=== PATIENT | female | born 1940 | race Caucasian/White ===

== ENCOUNTER → 2018-07-20 | Outpatient (CLI) | payer MEDICARE, BC ==
--- NOTE | 2018-07-21 12:22 | ECHOF ---
Referral Reason:I35.0 Aortic Stenosis MEASUREMENTS -------- HEIGHT: 170.2 cm WEIGHT: 95.3 kg BP: IVSd: 1.3 cm (0.6 - 1.1) LVIDd: 4.3 cm (3.9 - 5.3) LVPWd: 1.0 cm (0.6 - 1.1) IVSs: 1.4 cm LVIDs: 3.2 cm LVPWs: 1.2 cm LA Diam: 3.8 cm (2.7 - 3.8) LAESV Index (A-L): 28.08 ml/m Ao Diam: 3.0 cm (2.0 - 3.7) AV Cusp: 1.3 cm (1.5 - 2.6) LA Diam: 3.8 cm (2.7 - 3.8) MV EXCURSION: 22.495 mm (> 18.000) MV EF SLOPE: 111 mm/s (70 - 150) EPSS: 1.8 cm MV E Vincent: 0.75 m/s MV DecT: 275 ms MV A Vincent: 0.99 m/s MV E/A Ratio: 0.76 AV maxP.15 mmHg AV meanP.64 mmHg RAP: 5.00 mmHg RVSP: 28.98 mmHg FINDINGS -------- Sinus rhythm. This was a technically adequate study. The left ventricular size is normal. There is mild concentric left ventricular hypertrophy. Overa ll left ventricular systolic function is normal with, an EF between 55 - 60 %. The right ventricle is normal in size. The left atrial size is normal. The right atrial size is normal. There is mild aortic valve sclerosis. There is mild aortic stenosis present. Peak/mean gradient a cross the Aortic Valve is 20.15mmHg / 9.64mmHg. Mild mitral annular calcification present. Mild mitral regurgitation is present. Mild tricuspid regurgitation present. There is no evidence of pulmonary hypertension. The right v entricular systolic pressure, as measured by Doppler, is 28.98mmHg. There is no pulmonic regurgitation present. The aortic root size is normal. There is no pericardial effusion. CONCLUSIONS -------- 1. The left ventricular size is normal. 2. There is mild concentric left ventricular hypertrophy. 3. Overall left ventricular systolic function is normal with, an EF between 55 - 60 %. 4. The right ventricle is normal in size. 5. The left atrial size is normal. 6. The right atrial size is normal. 7. There is mild aortic valve sclerosis. 8. There is mild aortic stenosis present. 9. Peak/mean gradient across the Aortic Valve is 20.15mmHg / 9.64mmHg. 10. Mild mitral annular calcification present. 11. Mild mitral regurgitation is present. 12. Mild tricuspid regurgitation present. 13. There is no evidence of pulmonary hypertension. 14. The right ventricular systolic pressure, as measured by Doppler, is 28.98mmHg. 15. There is no pulmonic regurgitation present. 16. The aortic root size is normal. 17. There is no pericardial effusion. MATERIAL STRESS TESTER: Rosa Winkler RDCS
== END ==
LOC: RADECHMAIN 12:55
PROVIDERS: ATTEND Internal Medicine
DX: I08.3 Combined rheumatic disorders of mitral, aortic and tricuspid valves (principal)
CPT/HCPCS: 93306

== ENCOUNTER 2019-03-17 18:22 | Inpatient (IN) | payer MEDICARE, BC ==
[2019-03-17] MEDS ORDERED: ACETAMINOPHEN TAB 500 MG TAB PO STA (18:46)
--- NOTE | 2019-03-17 19:09 | ED ---
General Adult HPI - General Chief complaint: Nausea/Vomiting/Diarrhea Stated complaint: nausea Time Seen by Provider: 03/17/19 18:29 Source: patient, EMS Mode of arrival: EMS Limitations: no limitations - History of Present Illness Initial comments: 78-year-old female patient presents to the emergency department today for evaluation after having an episode of shaking chills at home. Patient states this started a couple of hours ago and only seemed to be worsening. Patient states she feels unwell. She denies any cough, nasal congestion, sore throat, chest pain, shortness of breath, abdominal pain, rash, or headache. States she has been nauseated but has not vomited. Denies any recent travel. States that she does have several family member sick with a gastrointestinal virus however she has not been around them. States she did have some mild dysuria. Patient denies any recent rash, diarrhea, constipation, back pain, numbness, tingling, dizziness, hematuria, visual changes, or any other complaints. - Related Data Home Medications Medication Instructions Recorded Confirmed Metoprolol Tartrate [Lopressor] 25 mg PO BID 10/30/15 03/17/19 Omeprazole 20 mg PO HS 10/30/15 03/17/19 Simvastatin [Zocor] 20 mg PO HS 10/30/15 03/17/19 Spironolactone [Aldactone] 25 mg PO DAILY 10/30/15 03/17/19 Valsartan [Diovan] 160 mg PO DAILY 10/30/15 03/17/19 Anastrozole [Arimidex] 1 mg PO HS 03/17/19 03/17/19 Aspirin EC [Ecotrin Low Dose] 81 mg PO HS 03/17/19 03/17/19 Aspirin [Aspirin EC] 650 mg PO BID 03/17/19 03/17/19 Cholecalciferol (Vitamin D3) 2,000 unit PO DAILY 03/17/19 03/17/19 [Vitamin D3] Allergies Allergy/AdvReac Type Severity Reaction Status Date / Time adhesive Allergy Rash/Hives Verified 03/17/19 19:06 codeine Allergy Nausea Verified 03/17/19 19:06 enalapril maleate Allergy Cough Verified 03/17/19 19:06 [From Vasotec] enalaprilat dihydrate Allergy Cough Verified 03/17/19 19:06 [From Vasotec] Sulfa (Sulfonamide Allergy Rash/Hives Verified 03/17/19 19:06 Antibiotics) Review of Systems ROS Statement: Those systems with pertinent positive or pertinent negative responses have been documented in the HPI. ROS Other: All systems not noted in ROS Statement are negative. Past Medical History Past Medical History: Cancer, GERD/Reflux, Hyperlipidemia, Hypertension Additional Past Medical History / Comment(s): VERTIGO. BRADYCARDIA. BREAST CANCER WITH RADIATION. History of Any Multi-Drug Resistant Organisms: None Reported Past Surgical History: Appendectomy, Hysterectomy, Joint Replacement, Tonsillectomy Additional Past Surgical History / Comment(s): LEFT MASTECTOMY. RIGHT KNEE REPLACED Past Anesthesia/Blood Transfusion Reactions: Motion Sickness Additional Past Anesthesia/Blood Transfusion Reaction / Comment(s): HX OF VERTIGO Past Psychological History: No Psychological Hx Reported Smoking Status: Never smoker Past Alcohol Use History: None Reported Past Drug Use History: None Reported - Past Family History Father Family Medical History: COPD General Exam Limitations: no limitations General appearance: alert, in no apparent distress, other (Physical well- developed, well-nourished elderly female patient in no acute distress. Vital signs upon presentation are temperature 3.3F, pulse 81, respirations 18, blood pressure 126/54, pulse ox 96% on room air.) Eye exam: Present: normal appearance, PERRL, EOMI. Absent: scleral icterus, conjunctival injection, periorbital swelling ENT exam: Present: normal exam, normal oropharynx, mucous membranes moist Respiratory exam: Present: normal lung sounds bilaterally. Absent: respiratory distress, wheezes, rales, rhonchi, stridor Cardiovascular Exam: Present: regular rate, normal rhythm, normal heart sounds. Absent: systolic murmur, diastolic murmur, rubs, gallop, clicks GI/Abdominal exam: Present: soft, normal bowel sounds. Absent: distended, tenderness, guarding, rebound, rigid Neurological exam: Present: alert, oriented X3, CN II-XII intact Psychiatric exam: Present: normal affect, normal mood Skin exam: Present: warm, dry, intact, normal color. Absent: rash Course Vital Signs 03/17/19 03/17/19 18:25 21:08 Temperature 103.3 F H 99.5 F Pulse Rate 81 Respiratory 18 Rate Blood Pressure 126/54 O2 Sat by Pulse 96 Oximetry EKG Findings - EKG Comments: EKG Findings:: EKG obtained at 1825 shows normal sinus rhythm with a ventricular rate of 85, MI interval 198, QRS duration 80, QT 366, QTc 435. No evidence of ST elevation or depression. Medical Decision Making - Medical Decision Making 78-year-old female patient presented to the emergency department today after grimm ving shaking chills at home. Patient is reporting feeling unwell. Upon arrival is resting comfortably in bed. Physical examination is unremarkable. Abdomen is soft and nontender. Lungs are clear to auscultation with good air movement. Vital signs do reveal elevated temperature 103F, remainder of vitals are normal. Labs reviewed and did reveal elevated white blood cell count at 12, elevated lactic acid at 2.3. Urinalysis was positive for urinary tract infection. Given these findings patient will be admitted to the hospital for IV antibiotics for UTI and sepsis. My attending Dr. Daigle discussed the case with parts sales counterperson [employer] Dr. Bales who is accepting. - Lab Data Result diagrams: 03/17/19 18:57 03/17/19 18:57 Lab Results 03/17/19 03/17/19 03/17/19 Range/Units 18:57 18:57 18:57 WBC 12.0 H (3.8-10.6) k/uL RBC 4.06 (3.80-5.40) m/uL Hgb 13.8 (11.4-16.0) gm/dL Hct 41.8 (34.0-46.0) % MCV 103.0 H (80.0-100.0) fL MCH 33.9 (25.0-35.0) pg MCHC 33.0 (31.0-37.0) g/dL RDW 13.0 (11.5-15.5) % Plt Count 192 (150-450) k/uL Neutrophils % 90 % Lymphocytes % 4 % Monocytes % 4 % Eosinophils % 1 % Basophils % 0 % Neutrophils # 10.8 H (1.3-7.7) k/uL Lymphocytes # 0.5 L (1.0-4.8) k/uL Monocytes # 0.5 (0-1.0) k/uL Eosinophils # 0.1 (0-0.7) k/uL Basophils # 0.1 (0-0.2) k/uL Macrocytosis Slight PT 10.1 (9.0-12.0) sec INR 0.9 (<1.2) APTT 19.3 L (22.0-30.0) sec Sodium 141 (137-145) mmol/L Potassium 4.4 (3.5-5.1) mmol/L Chloride 107 (98-107) mmol/L Carbon Dioxide 24 (22-30) mmol/L Anion Gap 10 mmol/L BUN 16 (7-17) mg/dL Creatinine 0.99 (0.52-1.04) mg/dL Est GFR (CKD-EPI)AfAm 63 (>60 ml/min/1.73 sqM) Est GFR (CKD-EPI)NonAf 55 (>60 ml/min/1.73 sqM) Glucose 106 H (74-99) mg/dL Plasma Lactic Acid Tony (0.7-2.0) mmol/L Calcium 10.4 H (8.4-10.2) mg/dL Total Bilirubin 1.2 (0.2-1.3) mg/dL AST 20 (14-36) U/L ALT 18 (9-52) U/L Alkaline Phosphatase 69 (38-126) U/L Total Protein 6.6 (6.3-8.2) g/dL Albumin 3.9 (3.5-5.0) g/dL Urine Color Urine Appearance (Clear) Urine pH (5.0-8.0) Ur Specific [place] (1.001-1.035) Urine Protein (Negative) Urine Glucose (UA) (Negative) Urine Ketones (Negative) Urine Blood (Negative) Urine Nitrite (Negative) Urine Bilirubin (Negative) Urine Urobilinogen (<2.0) mg/dL Ur Leukocyte Esterase (Negative) Urine RBC (0-5) /hpf Urine WBC (0-5) /hpf Ur Squamous Epith Cells (0-4) /hpf Urine Bacteria (None) /hpf Urine Mucus (None) /hpf Influenza Type A RNA (Not Detectd) Influenza Type B (PCR) (Not Detectd) 03/17/19 03/17/19 03/17/19 Range/Units 19:12 19:33 19:57 WBC (3.8-10.6) k/uL RBC (3.80-5.40) m/uL Hgb (11.4-16.0) gm/dL Hct (34.0-46.0) % MCV (80.0-100.0) fL MCH (25.0-35.0) pg MCHC (31.0-37.0) g/dL RDW (11.5-15.5) % Plt Count (150-450) k/uL Neutrophils % % Lymphocytes % % Monocytes % % Eosinophils % % Basophils % % Neutrophils # (1.3-7.7) k/uL Lymphocytes # (1.0-4.8) k/uL Monocytes # (0-1.0) k/uL Eosinophils # (0-0.7) k/uL Basophils # (0-0.2) k/uL Macrocytosis PT (9.0-12.0) sec INR (<1.2) APTT (22.0-30.0) sec Sodium (137-145) mmol/L Potassium (3.5-5.1) mmol/L Chloride (98-107) mmol/L Carbon Dioxide (22-30) mmol/L Anion Gap mmol/L BUN (7-17) mg/dL Creatinine (0.52-1.04) mg/dL Est GFR (CKD-EPI)AfAm (>60 ml/min/1.73 sqM) Est GFR (CKD-EPI)NonAf (>60 ml/min/1.73 sqM) Glucose (74-99) mg/dL Plasma Lactic Acid Tony 2.3 H* (0.7-2.0) mmol/L Calcium (8.4-10.2) mg/dL Total Bilirubin (0.2-1.3) mg/dL AST (14-36) U/L ALT (9-52) U/L Alkaline Phosphatase (38-126) U/L Total Protein (6.3-8.2) g/dL Albumin (3.5-5.0) g/dL Urine Color Yellow Urine Appearance Cloudy H (Clear) Urine pH 5.5 (5.0-8.0) Ur Specific [place] 1.016 (1.001-1.035) Urine Protein Trace H (Negative) Urine Glucose (UA) Negative (Negative) Urine Ketones Negative (Negative) Urine Blood Small H (Negative) Urine Nitrite Negative (Negative) Urine Bilirubin Negative (Negative) Urine Urobilinogen <2.0 (<2.0) mg/dL Ur Leukocyte Esterase Large H (Negative) Urine RBC 14 H (0-5) /hpf Urine WBC >182 H (0-5) /hpf Ur Squamous Epith Cells 1 (0-4) /hpf Urine Bacteria Rare H (None) /hpf Urine Mucus Rare H (None) /hpf Influenza Type A RNA Not Detected (Not Detectd) Influenza Type B (PCR) Not Detected (Not Detectd) - Radiology Data Radiology results: report reviewed, image reviewed Two-view x-ray of the chest is obtained. Report was reviewed in its entirety. Impression by Dr. Kaur shows normal chest. Disposition Clinical Impression: UTI (urinary tract infection), Sepsis Disposition: ADMITTED IP TO THIS HOSP Condition: Serious Referrals: Jose Conde MD [Primary Care Provider] - 1-2 days Decision to Admit Reason: Admit from EC Decision Date: 03/17/19 Decision Time: 21:37
[2019-03-17 19:22] LABS: Basophils # (A) 0.1 k/uL (0-0.2); Basophils % (A) 0 %; Eosinophils # (A) 0.1 k/uL (0-0.7); Eosinophils % (A) 1 %; HCT 41.8 % (34.0-46.0); HGB 13.8 gm/dL (11.4-16.0); Lymphocytes # (A) 0.5 k/uL (1.0-4.8); Lymphocytes % (A) 4 %; MCH 33.9 pg (25.0-35.0); Macrocytosis Slight; Mean Platelet Volume 7.1; Monocytes # (A) 0.5 k/uL (0-1.0); Monocytes % (A) 4 %; Neutrophils # (A) 10.8 k/uL (1.3-7.7); Neutrophils % (A) 90 %; Platelet Count 192 k/uL (150-450); RBC 4.06 m/uL (3.80-5.40)
[2019-03-17 19:33] LABS: Albumin 3.9 g/dL (3.5-5.0); Calcium 10.4 mg/dL (8.4-10.2); Potassium 4.4 mmol/L (3.5-5.1); Total Bilirubin 1.2 mg/dL (0.2-1.3); Total Protein 6.6 g/dL (6.3-8.2)
[2019-03-17 19:38] LABS: INR 0.9 (<1.2); Prothrombin Time 10.1 sec (9.0-12.0)
[2019-03-17] MEDS: SODIUM CHLORIDE 0.9% 500 ML 500 ML IV SCH ×2 (19:39→21:00)
[2019-03-17 19:44] LABS: Partial Thromboplastin Time 19.3 sec (22.0-30.0)
--- NOTE | 2019-03-17 20:11 | XR ---
EXAMINATION TYPE: XR chest 2V DATE OF EXAM: 03/17/2019 COMPARISON: NONE HISTORY: Nausea. TECHNIQUE: Frontal and lateral views of the chest are obtained. FINDINGS: Heart and mediastinum are normal. Lungs are clear. Diaphragm is normal. Bony thorax is int act. There are chest leads. IMPRESSION: Normal chest
[2019-03-17 20:47] LABS: Appearance,Urine Cloudy (Clear); Bacteria,Urine Rare /hpf; Bilirubin,Urine Negative (Negative); Blood,Urine Small (Negative); Color,Urine Yellow; Glucose,Urine (UA) Negative (Negative); Ketones,Urine Negative (Negative); Leukocyte Esterase,Urine Large (Negative); Mucus,Urine Rare /hpf; Nitrite,Urine Negative (Negative); PH, Urine 5.5 (5.0-8.0); Protein,Urine Trace (Negative); RBC,Urine 14 /hpf (0-5); Specific Gravity,Urine 1.016 (1.001-1.035); Squamous Epithelial Cell,Urine 1 /hpf (0-4); Urobilinogen,Urine <2.0 mg/dL (<2.0); WBC,Urine >182 /hpf (0-5)
[2019-03-17] MEDS ORDERED: NALOXONE 0.4 MG/ML 1 ML VIAL IV PRN (21:33)
--- NOTE | 2019-03-17 22:30 | P.HPIM ---
History of Present Illness H&P Date: 03/17/19 Patient is a 78-year-old female with a PMH of hypertension, breast cancer status post left mastectomy and radiation 7 years ago, in remission, and hyperlipidemia presented to the ED with complaints of dysuria, and chills at home. Patient notes that she has a history of multiple recurrent UTIs and that she felt her symptoms coming on a day prior, though they worsened suddenly earlier today and she developed fever with shaking chills. She endorsed dysuria, urinary urgency, and frequency. She also endorsed having 3 episodes of small amounts of vomiting earlier today. She denied chest pain, shortness of breath abdominal pain, headaches, or visual disturbances. She underwent an extensive evaluation in the ED with WBC count 12, fever of 103.3 on presentation, with lactate 2.3, and a UA consistent with UTI. An EKG revealed normal sinus rhythm at 85 bpm with chest x-ray unremarkable. She was started on IV antibiotics and IV fluids and is being admitted to the medicine service for further management of UTI sepsis. Review of Systems Pertinent positives and negatives as discussed in HPI, a complete review of systems was performed and all other systems are negative. Past Medical History Past Medical History: Cancer, GERD/Reflux, Hyperlipidemia, Hypertension Additional Past Medical History / Comment(s): VERTIGO. BRADYCARDIA. BREAST CANCER WITH RADIATION. History of Any Multi-Drug Resistant Organisms: None Reported Past Surgical History: Appendectomy, Hysterectomy, Joint Replacement, Tonsillectomy Additional Past Surgical History / Comment(s): LEFT MASTECTOMY. RIGHT KNEE REPLACED Past Anesthesia/Blood Transfusion Reactions: Motion Sickness Additional Past Anesthesia/Blood Transfusion Reaction / Comment(s): HX OF VERTIGO Past Psychological History: No Psychological Hx Reported Smoking Status: Never smoker Past Alcohol Use History: None Reported Past Drug Use History: None Reported - Past Family History Father Family Medical History: COPD Medications and Allergies Home Medications Medication Instructions Recorded Confirmed Type Metoprolol Tartrate [Lopressor] 25 mg PO BID 10/30/15 03/17/19 History Omeprazole 20 mg PO HS 10/30/15 03/17/19 History Simvastatin [Zocor] 20 mg PO HS 10/30/15 03/17/19 History Spironolactone [Aldactone] 25 mg PO DAILY 10/30/15 03/17/19 History Valsartan [Diovan] 160 mg PO DAILY 10/30/15 03/17/19 History Anastrozole [Arimidex] 1 mg PO HS 03/17/19 03/17/19 History Aspirin EC [Ecotrin Low Dose] 81 mg PO HS 03/17/19 03/17/19 History Aspirin [Aspirin EC] 650 mg PO BID 03/17/19 03/17/19 History Cholecalciferol (Vitamin D3) 2,000 unit PO DAILY 03/17/19 03/17/19 History [Vitamin D3] Allergies Allergy/AdvReac Type Severity Reaction Status Date / Time adhesive Allergy Rash/Hives Verified 03/17/19 19:06 codeine Allergy Nausea Verified 03/17/19 19:06 enalapril maleate Allergy Cough Verified 03/17/19 19:06 [From Vasotec] enalaprilat dihydrate Allergy Cough Verified 03/17/19 19:06 [From Vasotec] Sulfa (Sulfonamide Allergy Rash/Hives Verified 03/17/19 19:06 Antibiotics) Physical Exam Vitals: Vital Signs Temp Pulse Resp BP Pulse Ox 03/17/19 22:16 98.4 F 64 18 98/50 95 03/17/19 21:08 99.5 F 03/17/19 18:25 103.3 F H 81 18 126/54 96 Intake and Output 03/17/19 03/17/19 03/17/19 06:59 14:59 22:59 Other: Weight 95.254 kg General: non toxic, no distress, appears at stated age, obese Derm: no unusual rashes/lesions no unusual ecchymoses, warm, dry Head: atraumatic, normocephalic, symmetric Eyes: EOMI, no lid lag, anicteric sclera, pupils equal round reactive to light ENT: Nose and ears atraumatic, no thrush, no pharyngeal erythema Neck: No thyromegaly, no cervical lymphadenopathy, trachea midline, supple Mouth: no lip lesion, mucus membranes moist Cardiovascular: S1S2 reg, no murmur, positive posterior tibial pulse bilateral, no edema, capillary refill less than 2 seconds Lungs: CTA bilateral, no rhonchi, no rales , no accessory muscle use Abdominal: soft, nontender to palpation, no guarding, no appreciable organomegaly, normal bowel sounds Ext: no gross muscle atrophy, muscle strength 5 out of 5 in all 4 extremities grossly, no contractures, Neuro: CN II-XI grossly intact, light touch intact all 4 extremities, finger to nose within normal limits, Psych: Alert, oriented, appropriate affect Results CBC & Chem 7: 03/17/19 18:57 03/17/19 18:57 Labs: Abnormal Lab Results - Last 24 Hours (Table) 03/17/19 03/17/19 03/17/19 Range/Units 18:57 18:57 18:57 WBC 12.0 H (3.8-10.6) k/uL MCV 103.0 H (80.0-100.0) fL Neutrophils # 10.8 H (1.3-7.7) k/uL Lymphocytes # 0.5 L (1.0-4.8) k/uL APTT 19.3 L (22.0-30.0) sec Glucose 106 H (74-99) mg/dL Plasma Lactic Acid Tony (0.7-2.0) mmol/L Calcium 10.4 H (8.4-10.2) mg/dL Urine Appearance (Clear) Urine Protein (Negative) Urine Blood (Negative) Ur Leukocyte Esterase (Negative) Urine RBC (0-5) /hpf Urine WBC (0-5) /hpf Urine Bacteria (None) /hpf Urine Mucus (None) /hpf 03/17/19 03/17/19 Range/Units 19:12 19:57 WBC (3.8-10.6) k/uL MCV (80.0-100.0) fL Neutrophils # (1.3-7.7) k/uL Lymphocytes # (1.0-4.8) k/uL APTT (22.0-30.0) sec Glucose (74-99) mg/dL Plasma Lactic Acid Tony 2.3 H* (0.7-2.0) mmol/L Calcium (8.4-10.2) mg/dL Urine Appearance Cloudy H (Clear) Urine Protein Trace H (Negative) Urine Blood Small H (Negative) Ur Leukocyte Esterase Large H (Negative) Urine RBC 14 H (0-5) /hpf Urine WBC >182 H (0-5) /hpf Urine Bacteria Rare H (None) /hpf Urine Mucus Rare H (None) /hpf Assessment and Plan Plan: UTI sepsis -Continue with IV antibiotics with ceftriaxone daily -Continue with IV fluids -Follow-up urine and blood culture Lactic acidosis -Secondary to sepsis -Monitor to resolution Chronic conditions: ?Afib, HTN, HLD -Contact PMD's office to get info regarding possible Afib and why patient isn't on AC -Hold antihypertensives in setting of sepsis -Resume as warranted DVT prophylaxis -Heparin The patient is admitted with an anticipated less than 2 midnight stay for evaluation of UTI sepsis CODE STATUS: No Code Discussed with: Patient, , Daughter Anticipated discharge date: 03/19/[address]: Home A total of 40 minutes was spent on the care of this complex patient more than 50% of the time was spent in counseling and care coordination.
[2019-03-18] MEDS: SODIUM CHLORIDE 0.9% 1,000 ML IV SCH ×3 (00:53→18:55)
[2019-03-18] MEDS: HEPARIN SODIUM,PORCINE 5,000 UNIT/ML 1 ML VIAL SQ SCH ×4 (00:53→23:32)
[2019-03-18] MEDS: CHOLECALCIFEROL 1,000 UNIT TAB PO SCH (07:50)
[2019-03-18] MEDS: METOPROLOL TARTRATE 25 MG TAB PO SCH ×2 (07:55→21:15)
[2019-03-18 09:19] LABS: HCT 38.8 % (34.0-46.0); MCH 34.8 pg (25.0-35.0); MCHC 33.5 g/dL (31.0-37.0); Macrocytosis Slight; Mean Platelet Volume 7.9; Platelet Count 181 k/uL (150-450); RBC 3.73 m/uL (3.80-5.40); RDW 13.8 % (11.5-15.5); WBC 11.5 k/uL (3.8-10.6)
[2019-03-18 10:14] LABS: Eosinophils # (M) 0.12 k/uL (0-0.7); Lymphocytes # (M) 1.38 k/uL (1.0-4.8); Monocytes # (M) 0.35 k/uL (0-1.0); Neutrophils % (M) 84 %; Nucleated Red Blood Cells 0 /100 WBC (0-0); Total Cells Counted 100
--- NOTE | 2019-03-18 13:51 | P.PN ---
Subjective Progress Note Date: 03/18/19 Principal diagnosis: UTI Doing better, no fevers or chills. No chest pain, no sob. No abdominal or flank pain. Objective - Vital Signs Vital signs: Vital Signs Temp 97.7 F 03/18/19 12:36 Pulse 71 03/18/19 12:36 Resp 16 03/18/19 12:36 BP 93/53 03/18/19 12:36 Pulse Ox 97 03/18/19 12:36 Intake & Output 03/17/19 03/18/19 03/18/19 18:59 06:59 18:59 Intake Total 500 Balance 500 Weight 95.254 kg Intake: Oral 500 Other: Voiding Method Toilet # Voids 1 - Exam Constitutional: No acute distress, conversant, pleasant Eyes:Anicteric sclerae, moist conjunctiva, no lid-lag, PERRLA, ENMT: Oropharynx clear, no erythema, exudates Neck: Supple, FROM, no masses, or JVD, No carotid bruits, No thyromegaly Lungs: Clear to auscultation, Clear to percussion, Normal respiratory effort, no accessory muscle use Cardiovascular: Heart regular in rate and rhythm, No murmurs, gallops, or rubs, No peripheral edema Abdominal: Soft, Nontender, no guarding, rebound or rigidity, Normoactive bowel sounds, No hepatomegaly, No splenomegaly, No palpable mass Skin: Normal temperature, tone, texture, turgor, no induration, No subcutaneous nodules, No rash, lesions, No ulcers Extremities: No digital cyanosis, No clubbing, Pedal pulses intact and symmetrical, Radial pulses intact and symmetrical, No calf tenderness Psychiatric: Alert and oriented to person, place and time, appropriate affect, intact judgement Neuro: Muscles Strength 5/5 in all 4 extremities, Sensation to light touch grossly present throughout, Cranial nerves II-XII grossly intact, no focal sensory deficits - Labs CBC & Chem 7: 03/18/19 08:44 03/17/19 18:57 Labs: Abnormal Lab Results - Last 24 Hours (Table) 03/17/19 03/17/19 03/17/19 Range/Units 18:57 18:57 18:57 WBC 12.0 H (3.8-10.6) k/uL RBC (3.80-5.40) m/uL MCV 103.0 H (80.0-100.0) fL Neutrophils # 10.8 H (1.3-7.7) k/uL Neutrophils # (Manual) (1.3-7.7) k/uL Lymphocytes # 0.5 L (1.0-4.8) k/uL APTT 19.3 L (22.0-30.0) sec Glucose 106 H (74-99) mg/dL Plasma Lactic Acid Tony (0.7-2.0) mmol/L Calcium 10.4 H (8.4-10.2) mg/dL Urine Appearance (Clear) Urine Protein (Negative) Urine Blood (Negative) Ur Leukocyte Esterase (Negative) Urine RBC (0-5) /hpf Urine WBC (0-5) /hpf Urine Bacteria (None) /hpf Urine Mucus (None) /hpf 03/17/19 03/17/19 03/18/19 Range/Units 19:12 19:57 08:44 WBC 11.5 H (3.8-10.6) k/uL RBC 3.73 L (3.80-5.40) m/uL MCV 104.0 H (80.0-100.0) fL Neutrophils # (1.3-7.7) k/uL Neutrophils # (Manual) 9.66 H (1.3-7.7) k/uL Lymphocytes # (1.0-4.8) k/uL APTT (22.0-30.0) sec Glucose (74-99) mg/dL Plasma Lactic Acid Tony 2.3 H* (0.7-2.0) mmol/L Calcium (8.4-10.2) mg/dL Urine Appearance Cloudy H (Clear) Urine Protein Trace H (Negative) Urine Blood Small H (Negative) Ur Leukocyte Esterase Large H (Negative) Urine RBC 14 H (0-5) /hpf Urine WBC >182 H (0-5) /hpf Urine Bacteria Rare H (None) /hpf Urine Mucus Rare H (None) /hpf Microbiology - Last 24 Hours (Table) 03/17/19 19:57 Urine Culture - Preliminary Urine,Voided Assessment and Plan Plan: UTI sepsis -Sepsis resolved. -Continue with IV antibiotics with ceftriaxone daily -Continue with IV fluids -Follow-up urine and blood culture Lactic acidosis -Secondary to sepsis -Resolved Chronic conditions: HTN, HLD -Stable, hold BP meds for now, BP borderline DVT prophylaxis -Heparin CODE STATUS: No Code Discussed with: Patient, , Daughter Anticipated discharge date: 03/19/[address]: Home A total of 35 minutes was spent on the care of this complex patient more than 50% of the time was spent in counseling and care coordination.
[2019-03-18] MEDS ORDERED: ANASTROZOLE 1 MG TAB PO SCH (21:00)
[2019-03-18] MEDS ORDERED: PANTOPRAZOLE 40 MG TABLET PO SCH (21:00)
[2019-03-18] MEDS ORDERED: ASPIRIN 81 MG PO SCH (21:00)
[2019-03-18] MEDS ORDERED: ATORVASTATIN 10 MG TAB PO SCH (21:00)
[2019-03-18 21:14] VITALS: RESP 18
[2019-03-19] MEDS: SODIUM CHLORIDE 0.9% 1,000 ML IV SCH (03:44)
[2019-03-19 05:29] VITALS: BP 132/73; PULSE 54; TEMP 99.1
[2019-03-19] MEDS: CHOLECALCIFEROL 1,000 UNIT TAB PO SCH (08:13)
[2019-03-19] MEDS: METOPROLOL TARTRATE 25 MG TAB PO SCH (08:13)
[2019-03-19] MEDS: HEPARIN SODIUM,PORCINE 5,000 UNIT/ML 1 ML VIAL SQ SCH (08:14)
--- NOTE | 2019-03-19 08:22 | P.DS ---
Providers Date of admission: 03/19/19 06:16 Expected date of discharge: 03/19/19 Attending physician: Wolf Bales MD Primary care physician: Jose Conde [facility] Course: 78-year-old female with a PMH of hypertension, breast cancer status post left mastectomy and radiation 7 years ago, in remission, and hyperlipidemia presented to the ED with complaints of dysuria, and chills at home. Patient notes that she has a history of multiple recurrent UTIs and that she felt her symptoms coming on a day prior, though they worsened suddenly earlier today and she developed fever with shaking chills. She endorsed dysuria, urinary urgency, and frequency. She also endorsed having 3 episodes of small amounts of vomiting earlier today. She denied chest pain, shortness of breath abdominal pain, headaches, or visual disturbances. She underwent an extensive evaluation in the ED with WBC count 12, fever of 103.3 on presentation, with lactate 2.3, and a UA consistent with UTI. An EKG revealed normal sinus rhythm at 85 bpm with chest x-ray unremarkable. She was started on IV antibiotics and IV fluids and is being admitted to the medicine service for further management of UTI sepsis. Patient was admitted, ceftriaxone started. Cultures were sent and they remained negative at the time of discharge. She did not have any recurrent symptoms chills or urinary symptoms. No more vomiting. Sepsis resolved. She will be discharged home in stable condition. Patient Condition at Discharge: Serious Plan - Discharge Summary New Discharge Prescriptions: New Cefdinir [Omnicef] 300 mg PO Q12HR 3 Days #6 capsule Continue Valsartan [Diovan] 160 mg PO DAILY Spironolactone [Aldactone] 25 mg PO DAILY Simvastatin [Zocor] 20 mg PO HS Omeprazole 20 mg PO HS Metoprolol Tartrate [Lopressor] 25 mg PO BID Aspirin EC [Ecotrin Low Dose] 81 mg PO HS Anastrozole [Arimidex] 1 mg PO HS Cholecalciferol (Vitamin D3) [Vitamin D3] 2,000 unit PO DAILY Aspirin [Aspirin EC] 650 mg PO BID Discharge Medication List Metoprolol Tartrate [Lopressor] 25 mg PO BID 10/30/15 [History] Omeprazole 20 mg PO HS 10/30/15 [History] Simvastatin [Zocor] 20 mg PO HS 10/30/15 [History] Spironolactone [Aldactone] 25 mg PO DAILY 10/30/15 [History] Valsartan [Diovan] 160 mg PO DAILY 10/30/15 [History] Anastrozole [Arimidex] 1 mg PO HS 03/17/19 [History] Aspirin EC [Ecotrin Low Dose] 81 mg PO HS 03/17/19 [History] Aspirin [Aspirin EC] 650 mg PO BID 03/17/19 [History] Cholecalciferol (Vitamin D3) [Vitamin D3] 2,000 unit PO DAILY 03/17/19 [History] Cefdinir [Omnicef] 300 mg PO Q12HR 3 Days #6 capsule 03/19/19 [Rx] Follow up Appointment(s)/Referral(s): Jose Conde MD [Primary Care Provider] - 1-2 days Patient Instructions/Handouts: Urinary Tract Infection in Women (DC), Sepsis (GEN)
== END 2019-03-19 10:24 | disposition home or self-care (01) | DRG 872 ==
LOC: EC 18:22 → 4MS4W 21:11 → OBSVTOIN 03-19 06:16
PROVIDERS: ADMIT Internal Medicine; ATTEND Internal Medicine
DX: A41.9 Sepsis, unspecified organism (principal); E87.2 Acidosis; N39.0 Urinary tract infection, site not specified; E78.5 Hyperlipidemia, unspecified; I10 Essential (primary) hypertension; I48.2 Chronic atrial fibrillation; K21.9 Gastro-esophageal reflux disease without esophagitis; Z79.899 Other long term (current) drug therapy; Z82.5 Family history of asthma and other chronic lower respiratory diseases; Z85.3 Personal history of malignant neoplasm of breast; Z87.440 Personal history of urinary (tract) infections; Z90.12 Acquired absence of left breast and nipple; Z90.710 Acquired absence of both cervix and uterus; Z92.3 Personal history of irradiation; Z88.5 Allergy status to narcotic agent; Z88.2 Allergy status to sulfonamides; Z88.8 Allergy status to other drugs, medicaments and biological substances; Z96.651 Presence of right artificial knee joint; Z79.82 Long term (current) use of aspirin
CPT/HCPCS: 36415; 71046; 80053; 81001; 83605; 85025; 85610; 85730; 87040; 87086; 87502; 93005; 96361; 96365; 99285

== ENCOUNTER → 2019-05-10 | Outpatient (CLI) | payer MEDICARE, BC ==
--- NOTE | 2019-05-10 15:48 | US ---
EXAMINATION TYPE: US kidneys/renal and bladder DATE OF EXAM: 05/10/2019 COMPARISON: NONE CLINICAL HISTORY: N39.0 Frequent or recurrent UTI. multiple UTI's this past year EXAM MEASUREMENTS: Right Kidney: 10.4 x 4.5 x 4.8 cm Left Kidney: 10.6 x 4.2 x 4.5 cm Right Kidney: exophytic cyst on inferior pole = 1.5cm Left Kidney: exophytic cyst on inferior pole = 1.5cm Bladder: wnl Bilateral Jets seen: not seen There is no evidence for hydronephrosis at this point in time. No nephrolithiasis is seen. No suspi cious masses are identified. The urinary bladder is anechoic. Bilateral ureteral jets are not seen. IMPRESSION: 1. No hydronephrosis or nephrolithiasis. 2. Bilateral exophytic renal cysts both measuring 1.5 cm.
== END | disposition home or self-care (01) ==
LOC: RADUSWWP 14:48
PROVIDERS: ATTEND Urology
DX: N28.1 Cyst of kidney, acquired (principal); Z88.2 Allergy status to sulfonamides; Z88.5 Allergy status to narcotic agent
CPT/HCPCS: 76770

== ENCOUNTER 2020-01-08 07:18 | Emergency (ER) | payer MEDICARE, BC ==
[2020-01-08 07:27] VITALS: TEMP 98
[2020-01-08] MEDS ORDERED: MECLIZINE 25 MG TAB PO STA (07:33)
[2020-01-08] MEDS ORDERED: SODIUM CHLORIDE 0.9% 500 ML 500 ML IV STA (07:33)
[2020-01-08 08:03] LABS: Basophils % (A) 1 %; Eosinophils # (A) 0.1 k/uL (0-0.7); Eosinophils % (A) 2 %; HCT 46.1 % (34.0-46.0); HGB 14.9 gm/dL (11.4-16.0); Lymphocytes # (A) 0.7 k/uL (1.0-4.8); Lymphocytes % (A) 16 %; MCH 33.3 pg (25.0-35.0); MCHC 32.4 g/dL (31.0-37.0); MCV 102.8 fL (80.0-100.0); Macrocytosis Slight; Mean Platelet Volume 7.4; Monocytes # (A) 0.2 k/uL (0-1.0); Monocytes % (A) 5 %; Neutrophils # (A) 3.6 k/uL (1.3-7.7); Neutrophils % (A) 77 %; Platelet Count 188 k/uL (150-450); RBC 4.48 m/uL (3.80-5.40); RDW 12.9 % (11.5-15.5); WBC 4.7 k/uL (3.8-10.6)
--- NOTE | 2020-01-08 08:05 | ED ---
General Adult HPI - General Chief complaint: Dizziness Stated complaint: vertigo Source: patient, RN notes reviewed, old records reviewed Mode of arrival: ambulatory Limitations: no limitations - History of Present Illness Initial comments: This is a 79-year-old female who presents emergency Department complaining that her vertigo was bad today. Patient states she woke up 3 times in the middle the night and every time she had vertigo. Patient states it was worse than it nor favian is. Patient states he didn't take any medications for it. Patient states she woke up this morning and again had vertigo and she began to panic because it was worse and she started breathing hard and got a little tingling in her fingers which she decided to call EMS per patient states since they arrived the vertigo subsided and so has her panic. Patient states currently she only has vertigo if she goes more prone to sitting position. Patient denies any recent fever chills cough per patient denies any headache patient denies numbness weakness per patient denies any lightheadedness dizziness or near syncopal episode. Patient denies any coordination problems. Patient denies any chest pain palpitations difficulty breathing or shortness of breath. Patient denies any abdominal pain patient states she was nauseous earlier but no longer. Patient was given Zofran in the ambulance. - Related Data Home Medications Medication Instructions Recorded Confirmed Metoprolol Tartrate [Lopressor] 25 mg PO BID 10/30/15 03/17/19 Omeprazole 20 mg PO HS 10/30/15 03/17/19 Simvastatin [Zocor] 20 mg PO HS 10/30/15 03/17/19 Spironolactone [Aldactone] 25 mg PO DAILY 10/30/15 03/17/19 Valsartan [Diovan] 160 mg PO DAILY 10/30/15 03/17/19 Anastrozole [Arimidex] 1 mg PO HS 03/17/19 03/17/19 Aspirin EC [Ecotrin Low Dose] 81 mg PO HS 03/17/19 03/17/19 Aspirin [Aspirin EC] 650 mg PO BID 03/17/19 03/17/19 Cholecalciferol (Vitamin D3) 2,000 unit PO DAILY 03/17/19 03/17/19 [Vitamin D3] Previous Rx's Medication Instructions Recorded Cefdinir [Omnicef] 300 mg PO Q12HR 3 Days #6 capsule 03/19/19 Meclizine [Antivert] 25 mg PO TID #20 tab 01/08/20 Allergies Allergy/AdvReac Type Severity Reaction Status Date / Time adhesive Allergy Rash/Hives Verified 01/08/20 07:22 codeine Allergy Nausea Verified 01/08/20 07:22 enalapril maleate Allergy Cough Verified 01/08/20 07:22 [From Vasotec] enalaprilat dihydrate Allergy Cough Verified 01/08/20 07:22 [From Vasotec] Sulfa (Sulfonamide Allergy Rash/Hives Verified 01/08/20 07:22 Antibiotics) Review of Systems ROS Statement: Those systems with pertinent positive or pertinent negative responses have been documented in the HPI. ROS Other: All systems not noted in ROS Statement are negative. Past Medical History Past Medical History: Cancer, GERD/Reflux, Hyperlipidemia, Hypertension Additional Past Medical History / Comment(s): VERTIGO. BRADYCARDIA. BREAST CANCE R WITH RADIATION. History of Any Multi-Drug Resistant Organisms: None Reported Past Surgical History: Adenoidectomy, Appendectomy, Hysterectomy, Joint Replacement, Tonsillectomy Additional Past Surgical History / Comment(s): LEFT MASTECTOMY. B KNEE REPLACED Past Anesthesia/Blood Transfusion Reactions: Motion Sickness Additional Past Anesthesia/Blood Transfusion Reaction / Comment(s): HX OF VERTIGO Past Psychological History: No Psychological Hx Reported Smoking Status: Never smoker Past Alcohol Use History: None Reported Past Drug Use History: None Reported - Past Family History Father Family Medical History: COPD General Exam - General Exam Comments Initial Comments: GENERAL: Patient is well-developed and well-nourished. Patient is nontoxic and well- hydrated and is in no acute distress. ENT: Neck is soft and supple. No significant lymphadenopathy is noted. Oropharynx is clear. Moist mucous membranes. Neck has full range of motion without eliciting any pain. EYES: The sclera were anicteric and conjunctiva were pink and moist. Extraocular movements were intact and pupils were equal round and reactive to light. Eyelids were unremarkable. PULMONARY: Unlabored respirations. Good breath sounds bilaterally. No audible rales rhonchi or wheezing was noted. CARDIOVASCULAR: There is a regular rate and rhythm without any murmurs gallops or rubs. ABDOMEN: Soft and nontender with normal bowel sounds. SKIN: Skin is clear with no lesions or rashes and otherwise unremarkable. NEUROLOGIC: Patient is alert and oriented x3. Cranial nerves II through XII are grossly intact. Motor and sensory are also intact. Normal speech, volume and content. Symmetrical smile. Cerebellar exam grossly intact. MUSCULOSKELETAL: Normal extremities with adequate strength and full range of motion. No lower extremity swelling or edema. No calf tenderness. LYMPHATICS: No significant lymphadenopathy is noted PSYCHIATRIC: Normal psychiatric evaluation. Limitations: no limitations Course Vital Signs 01/08/20 07:23 Temperature 98.0 F Pulse Rate 62 Respiratory 18 Rate Blood Pressure 147/65 O2 Sat by Pulse 99 Oximetry Medical Decision Making - Medical Decision Making EKG shows sinus bradycardia 59 bpm [place] interval is 212 QRS 76 QT interval 422 QTC is 417. Patient's EKG shows no ST segment elevation or depression. - Lab Data Result diagrams: 01/08/20 07:39 01/08/20 07:39 Lab Results 01/08/20 01/08/20 01/08/20 Range/Units 07:39 07:39 07:39 WBC 4.7 (3.8-10.6) k/uL RBC 4.48 (3.80-5.40) m/uL Hgb 14.9 (11.4-16.0) gm/dL Hct 46.1 H (34.0-46.0) % MCV 102.8 H (80.0-100.0) fL MCH 33.3 (25.0-35.0) pg MCHC 32.4 (31.0-37.0) g/dL RDW 12.9 (11.5-15.5) % Plt Count 188 (150-450) k/uL Neutrophils % 77 % Lymphocytes % 16 % Monocytes % 5 % Eosinophils % 2 % Basophils % 1 % Neutrophils # 3.6 (1.3-7.7) k/uL Lymphocytes # 0.7 L (1.0-4.8) k/uL Monocytes # 0.2 (0-1.0) k/uL Eosinophils # 0.1 (0-0.7) k/uL Basophils # 0.0 (0-0.2) k/uL Macrocytosis Slight PT 10.2 (9.0-12.0) sec INR 1.0 (<1.2) APTT 20.9 L (22.0-30.0) sec Sodium 138 (137-145) mmol/L Potassium 4.3 (3.5-5.1) mmol/L Chloride 108 H (98-107) mmol/L Carbon Dioxide 21 L (22-30) mmol/L Anion Gap 9 mmol/L BUN 15 (7-17) mg/dL Creatinine 0.91 (0.52-1.04) mg/dL Est GFR (CKD-EPI)AfAm 69 (>60 ml/min/1.73 sqM) Est GFR (CKD-EPI)NonAf 60 (>60 ml/min/1.73 sqM) Glucose 143 H (74-99) mg/dL Calcium 10.8 H (8.4-10.2) mg/dL Magnesium 1.7 (1.6-2.3) mg/dL Total Bilirubin 0.9 (0.2-1.3) mg/dL AST 26 (14-36) U/L ALT 15 (4-34) U/L Alkaline Phosphatase 66 (38-126) U/L Troponin I (0.000-0.034) ng/mL Total Protein 6.8 (6.3-8.2) g/dL Albumin 4.0 (3.5-5.0) g/dL /01/21 Range/Units 07:39 WBC (3.8-10.6) k/uL RBC (3.80-5.40) m/uL Hgb (11.4-16.0) gm/dL Hct (34.0-46.0) % MCV (80.0-100.0) fL MCH (25.0-35.0) pg MCHC (31.0-37.0) g/dL RDW (11.5-15.5) % Plt Count (150-450) k/uL Neutrophils % % Lymphocytes % % Monocytes % % Eosinophils % % Basophils % % Neutrophils # (1.3-7.7) k/uL Lymphocytes # (1.0-4.8) k/uL Monocytes # (0-1.0) k/uL Eosinophils # (0-0.7) k/uL Basophils # (0-0.2) k/uL Macrocytosis PT (9.0-12.0) sec INR (<1.2) APTT (22.0-30.0) sec Sodium (137-145) mmol/L Potassium (3.5-5.1) mmol/L Chloride (98-107) mmol/L Carbon Dioxide (22-30) mmol/L Anion Gap mmol/L BUN (7-17) mg/dL Creatinine (0.52-1.04) mg/dL Est GFR (CKD-EPI)AfAm (>60 ml/min/1.73 sqM) Est GFR (CKD-EPI)NonAf (>60 ml/min/1.73 sqM) Glucose (74-99) mg/dL Calcium (8.4-10.2) mg/dL Magnesium (1.6-2.3) mg/dL Total Bilirubin (0.2-1.3) mg/dL AST (14-36) U/L ALT (4-34) U/L Alkaline Phosphatase (38-126) U/L Troponin I <0.012 (0.000-0.034) ng/mL Total Protein (6.3-8.2) g/dL Albumin (3.5-5.0) g/dL Disposition Clinical Impression: Vertigo Disposition: HOME SELF-CARE Condition: Good Instructions (If sedation given, give patient instructions): Vertigo (ED) Prescriptions: Meclizine [Antivert] 25 mg PO TID #20 tab Is patient prescribed a controlled substance at d/c from ED?: No Referrals: Jose Conde MD [Primary Care Provider] - 1-2 days Time of Disposition: 09:22
[2020-01-08 08:15] LABS: Calcium 10.8 mg/dL (8.4-10.2); Magnesium 1.7 mg/dL (1.6-2.3); Potassium 4.3 mmol/L (3.5-5.1); Total Bilirubin 0.9 mg/dL (0.2-1.3); Total Protein 6.8 g/dL (6.3-8.2)
[2020-01-08 08:22] LABS: Prothrombin Time 10.2 sec (9.0-12.0)
[2020-01-08 08:26] LABS: Partial Thromboplastin Time 20.9 sec (22.0-30.0)
--- NOTE | 2020-01-08 08:38 | XR ---
EXAMINATION TYPE: XR chest 2V DATE OF EXAM: 01/08/2020 HISTORY: Chest Pain. REFERENCE: Previous study dated 03/17/2019. FINDINGS: The lungs remain clear. Pleural spaces are clear. The heart is not enlarged. IMPRESSION: NO ACTIVE INTRATHORACIC DISEASE.
[2020-01-08 09:39] VITALS: BP 132/53; PULSE 55; RESP 16
== END 2020-01-08 09:37 | disposition home or self-care (01) ==
LOC: EC 07:18
DX: R42 Dizziness and giddiness (principal); R20.2 Paresthesia of skin; R00.1 Bradycardia, unspecified; K21.9 Gastro-esophageal reflux disease without esophagitis; E78.5 Hyperlipidemia, unspecified; I10 Essential (primary) hypertension; Z79.82 Long term (current) use of aspirin; Z79.899 Other long term (current) drug therapy; Z91.048 Other nonmedicinal substance allergy status; Z88.5 Allergy status to narcotic agent; Z88.2 Allergy status to sulfonamides; Z88.8 Allergy status to other drugs, medicaments and biological substances; Z85.3 Personal history of malignant neoplasm of breast; Z92.3 Personal history of irradiation; Z96.651 Presence of right artificial knee joint; Z90.12 Acquired absence of left breast and nipple
CPT/HCPCS: 36415; 71046; 80053; 83735; 84484; 85025; 85610; 85730; 93005; 96360; 99284

== ENCOUNTER 2020-01-13 16:12 | Emergency (ER) | payer MEDICARE, BC ==
[2020-01-13] MEDS ORDERED: NA PHOS,M-B/NA PHOS,DI-BA 133 ML ENEMA RECTAL STA (17:06)
--- NOTE | 2020-01-13 17:42 | ED ---
Abdominal Pain HPI - General Chief Complaint: Abdominal Pain Stated Complaint: Poss bowel blockage Time Seen by Provider: 01/13/20 16:36 Source: patient Mode of arrival: ambulatory Limitations: no limitations - History of Present Illness Initial Comments: Patient is a 79-year-old female presenting to the emergency Department with complaints of constipation 1 week. Patient states she has not had a bowel movement since the weekend. Patient states it is normal for her to go a few days without having a bowel movement but states she's been having the urge and a pressure towards her rectum but has not been able to have a significant bowel movement. She states she did try a stool softener without improvement. She states her doctor told her to try an enema but she was nervous to do this at home. She denies any abdominal pain, nausea, vomiting. She denies any recent fever, chills. She denies chest pain, shortness of breath. She has no further complaints at this time. - Related Data Home Medications Medication Instructions Recorded Confirmed Metoprolol Tartrate [Lopressor] 25 mg PO BID 10/30/15 03/17/19 Omeprazole 20 mg PO HS 10/30/15 03/17/19 Simvastatin [Zocor] 20 mg PO HS 10/30/15 03/17/19 Spironolactone [Aldactone] 25 mg PO DAILY 10/30/15 03/17/19 Valsartan [Diovan] 160 mg PO DAILY 10/30/15 03/17/19 Anastrozole [Arimidex] 1 mg PO HS 03/17/19 03/17/19 Aspirin EC [Ecotrin Low Dose] 81 mg PO HS 03/17/19 03/17/19 Aspirin [Aspirin EC] 650 mg PO BID 03/17/19 03/17/19 Cholecalciferol (Vitamin D3) 2,000 unit PO DAILY 03/17/19 03/17/19 [Vitamin D3] Previous Rx's Medication Instructions Recorded Cefdinir [Omnicef] 300 mg PO Q12HR 3 Days #6 capsule 03/19/19 Meclizine [Antivert] 25 mg PO TID #20 tab 01/08/20 Allergies Allergy/AdvReac Type Severity Reaction Status Date / Time adhesive Allergy Rash/Hives Verified 01/13/20 16:21 codeine Allergy Nausea Verified 01/13/20 16:21 enalapril maleate Allergy Cough Verified 01/13/20 16:21 [From Vasotec] enalaprilat dihydrate Allergy Cough Verified 01/13/20 16:21 [From Vasotec] Sulfa (Sulfonamide Allergy Rash/Hives Verified 01/13/20 16:21 Antibiotics) Review of Systems ROS Statement: Those systems with pertinent positive or pertinent negative responses have been documented in the HPI. ROS Other: All systems not noted in ROS Statement are negative. Past Medical History Past Medical History: Cancer, GERD/Reflux, Hyperlipidemia, Hypertension Additional Past Medical History / Comment(s): VERTIGO. BRADYCARDIA. BREAST CANCER WITH RADIATION. History of Any Multi-Drug Resistant Organisms: None Reported Past Surgical History: Adenoidectomy, Appendectomy, Hysterectomy, Joint Replacement, Tonsillectomy Additional Past Surgical History / Comment(s): LEFT MASTECTOMY. B KNEE REPLACED Past Anesthesia/Blood Transfusion Reactions: Motion Sickness Additional Past Anesthesia/Blood Transfusion Reaction / Comment(s): HX OF VERTIGO Past Psychological History: No Psychological Hx Reported Smoking Status: Never smoker Past Alcohol Use History: None Reported Past Drug Use History: None Reported - Past Family History Father Family Medical History: COPD General Exam - General Exam Comments Initial Comments: GENERAL: Well-appearing, well-nourished and in no acute distress. HEAD: Atraumatic, normocephalic. EYES: Pupils equal round and reactive to light, extraocular movements intact, sclera anicteric, conjunctiva are normal. ENT: TMs normal, nares patent, oropharynx clear without exudates. Moist mucous membranes. NECK: Normal range of motion, supple without lymphadenopathy or JVD. LUNGS: Breath sounds clear to auscultation bilaterally and equal. No wheezes rales or rhonchi. HEART: Regular rate and rhythm without murmurs, rubs or gallops. ABDOMEN: Soft, nontender, normoactive bowel sounds. No guarding, no rebound. No masses appreciated. : Deferred EXTREMITIES: Normal range of motion, no pitting or edema. No clubbing or cyanosis. NEUROLOGICAL: Normal speech, normal gait. PSYCH: Normal mood, normal affect. SKIN: Warm, Dry, normal turgor, no rashes or lesions noted. Limitations: no limitations Course Vital Signs 01/13/20 01/13/20 16:18 18:42 Temperature 98.1 F 98.2 F Pulse Rate 77 74 Respiratory 16 18 Rate Blood Pressure 170/71 165/70 O2 Sat by Pulse 98 98 Oximetry Medical Decision Making - Medical Decision Making Patient is 79-year-old female here for constipation and pressure in her rectum for 2 days. She denies any abdominal pain, nausea, vomiting. Her exam is unremarkable. KUB shows gas and fecal matter and nondistended colon, no acute process. I did order an enema for the patient however she wished to try this at home vs doing it in the ER. Patient was able to have 2 small bowel movements while waiting in the ER. Patient is stable for discharge. I did recommend taking MiraLAX for 1-2 weeks to improve regularity. Patient will follow up with her PCP. Return parameters were discussed with the patient she verbalized understanding. Case discussed with Dr. Agarwal. Disposition Clinical Impression: Constipation Disposition: HOME SELF-CARE Condition: Stable Instructions (If sedation given, give patient instructions): Constipation (ED) Additional Instructions: Please return to the Emergency Department if symptoms worsen or any other concerns. Use enema as instructed. Trial of MiraLAX for 2 weeks to help with regularity Increase fluid intake. Follow up with PCP. Is patient prescribed a controlled substance at d/c from ED?: No Referrals: Jose Conde MD [Primary Care Provider] - 1-2 days
--- NOTE | 2020-01-13 18:06 | XR ---
EXAMINATION TYPE: XR KUB 2 UPRIGHT VIEWS DATE OF EXAM: 01/13/2020 5:24 PM CLINICAL HISTORY: Constipation, pain TECHNIQUE: 2 upright views COMPARISON: None. FINDINGS: Scattered gas is seen in non-distended small bowel loops. Gas and fecal material is seen in non-distended colon. There is no visceromegaly, pneumoperitoneum, or abnormal calcification apprecia bird. The lung bases are clear and the osseous structures are intact. IMPRESSION: No acute radiographic process.
[2020-01-13 18:42] VITALS: BP 165/70; PULSE 74; RESP 18; TEMP 98.2
== END 2020-01-13 18:42 | disposition home or self-care (01) ==
LOC: EC 16:12
DX: K59.00 Constipation, unspecified (principal); K21.9 Gastro-esophageal reflux disease without esophagitis; E78.5 Hyperlipidemia, unspecified; I10 Essential (primary) hypertension; Z85.3 Personal history of malignant neoplasm of breast; Z90.49 Acquired absence of other specified parts of digestive tract; Z90.710 Acquired absence of both cervix and uterus; Z96.653 Presence of artificial knee joint, bilateral; Z79.82 Long term (current) use of aspirin; Z79.899 Other long term (current) drug therapy; Z91.048 Other nonmedicinal substance allergy status; Z88.5 Allergy status to narcotic agent; Z88.8 Allergy status to other drugs, medicaments and biological substances; Z88.2 Allergy status to sulfonamides
CPT/HCPCS: 74018; 99284

== ENCOUNTER → 2020-04-25 | Outpatient (CLI) | payer MEDICARE, BC ==
--- NOTE | 2020-04-25 15:31 | ECHOF ---
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 This was a technically good study. The left ventricular size is normal. There is mild concentric left ventricular hypertrophy. Overa ll left ventricular systolic function is low-normal with, an EF between 50 - 55 %. The right ventricle is normal in size. The left atrium is mildly dilated. LA is midly dilated 29-33ml/m2. The right atrial size is normal. There is mild aortic stenosis present. Peak/mean gradient across the Aortic Valve is 19.34mmHg / 9. 93mmHg. Mild mitral regurgitation is present. Mild tricuspid regurgitation present. Right ventricular systolic pressure is normal at < 35 mmHg. Trace/mild (physiologic) pulmonic regurgitation. The aortic root size is normal. There is no pericardial effusion. CONCLUSIONS -------- 1. The left ventricular size is normal. 2. There is mild concentric left ventricular hypertrophy. 3. Overall left ventricular systolic function is low-normal with, an EF between 50 - 55 %. 4. The right ventricle is normal in size. 5. The left atrium is mildly dilated. 6. LA is midly dilated 29-33ml/m2. 7. The right atrial size is normal. 8. There is mild aortic stenosis present. 9. Peak/mean gradient across the Aortic Valve is 19.34mmHg / 9.93mmHg. 10. Mild mitral regurgitation is present. 11. Mild tricuspid regurgitation present. 12. There is no pericardial effusion. ELECTRONICS RESEARCH ENGINEER: Rosa Winkler RDCS
== END | disposition home or self-care (01) ==
LOC: RADECHMAIN 11:58
PROVIDERS: ATTEND Internal Medicine
DX: I08.3 Combined rheumatic disorders of mitral, aortic and tricuspid valves (principal)
CPT/HCPCS: 93306

== ENCOUNTER → 2020-08-28 | Outpatient (CLI) | payer MEDICARE, BC ==
[2020-08-29 10:17] LABS: Free Kappa Lt Chain Qnt, Serum 3.11 mg/dL (0.33-1.94)
== END | disposition home or self-care (01) ==
LOC: LABWHC1 14:33
PROVIDERS: ATTEND Internal Medicine
DX: E83.52 Hypercalcemia (principal)
CPT/HCPCS: 36415; 82306; 83883; 83970

== ENCOUNTER → 2020-12-20 | Outpatient (CLI) | payer MEDICARE, BC ==
[2020-12-20 22:54] LABS: Basophils # (A) 0.07 X 10*3/uL (0.00-0.10); Eosinophils # (A) 0.28 X 10*3/uL (0.04-0.35); Eosinophils % (A) 4.1 %; HCT 43.5 % (37.2-46.3); HGB 14.4 g/dL (12.0-15.0); Lymphocytes # (A) 2.18 X 10*3/uL (0.90-5.00); Lymphocytes % (A) 32.1 %; MCHC 33.1 g/dL (32.0-37.0); MCV 102.8 fL (80.0-97.0); Mean Platelet Volume 10.4 fL (9.5-12.2); Monocytes # (A) 0.68 X 10*3/uL (0.20-1.00); Neutrophils # (A) 3.58 X 10*3/uL (1.80-7.70); Neutrophils % (A) 52.7 %; Platelet Count 198 X 10*3/uL (140-440); RBC 4.23 X 10*6/uL (4.10-5.20); RDW 12.7 % (11.5-14.5)
[2020-12-21 04:28] LABS: African American GFR (CKD) 61.6 (60.0-200.0); Anion Gap 12.4 mmol/L (4.00-12.00); Calcium 10.6 mg/dL (8.7-10.3); Carbon Dioxide 21.6 mmol/L (21.6-31.8); Non-African American GFR(CKD) 53.2 (60.0-200.0); Potassium 4.5 mmol/L (3.5-5.5)
== END | disposition home or self-care (01) ==
LOC: LABWHC1 15:08
PROVIDERS: ATTEND Internal Medicine
DX: I10 Essential (primary) hypertension (principal)
CPT/HCPCS: 36415; 80048; 85025

== ENCOUNTER → 2021-04-18 | Outpatient (CLI) | payer MEDICARE, BC ==
[2021-04-18 10:39] LABS: HCT 42.9 % (37.2-46.3); HGB 14.3 g/dL (12.0-15.0); MCH 33.9 pg (27.0-32.0); MCHC 33.3 g/dL (32.0-37.0); MCV 101.7 fL (80.0-97.0); Mean Platelet Volume 9.5 fL (9.5-12.2); Platelet Count 231 X 10*3/uL (140-440); RBC 4.22 X 10*6/uL (4.10-5.20); RDW 12.6 % (11.5-14.5); WBC 5.18 X 10*3/uL (4.50-10.00)
[2021-04-19 02:22] LABS: African American GFR (CKD) 54.5 (60.0-200.0); Albumin 4.4 g/dL (3.80-4.90); Albumin/Globulin Ratio 1.91 (1.60-3.17); Anion Gap 11.7 mmol/L (4.00-12.00); BUN/Creat Ratio 12.73 Ratio (12.00-20.00); Calcium 10.6 mg/dL (8.7-10.3); Carbon Dioxide 23.3 mmol/L (21.6-31.8); Chol/HDL Ratio 4.15; Globulin 2.3 g/dL (1.6-3.3); LDL Cholesterol,Calculated 101.4 mg/dL (0.0-131.0); Potassium 4.3 mmol/L (3.5-5.5); Total Bilirubin 0.9 mg/dL (0.2-1.2); Total Protein 6.7 g/dL (6.2-8.2); VLDL Calculation 24.6 mg/dL (5.00-40.00)
== END | disposition home or self-care (01) ==
LOC: LABWHC1 07:53
PROVIDERS: ATTEND Internal Medicine
DX: I10 Essential (primary) hypertension (principal); E78.5 Hyperlipidemia, unspecified; E83.52 Hypercalcemia
CPT/HCPCS: 36415; 80053; 80061; 84443; 85027

== ENCOUNTER → 2021-05-10 | Outpatient (CLI) | payer MEDICARE, BC ==
--- NOTE | 2021-05-10 17:01 | ECHOF ---
Referral Reason:I35.0 aortic stenosis MEASUREMENTS -------- HEIGHT: 165.1 cm WEIGHT: 88.5 kg BP: RVIDd: 3.7 cm (< 3.3) IVSd: 1.0 cm (0.6 - 1.1) LVIDd: 3.9 cm (3.9 - 5.3) LVPWd: 1.2 cm (0.6 - 1.1) IVSs: 1.4 cm LVIDs: 2.6 cm LVPWs: 1.8 cm LAESV Index (A-L): 33.76 ml/m Ao Diam: 2.9 cm (2.0 - 3.7) AV Cusp: 1.3 cm (1.5 - 2.6) LA Diam: 4.5 cm (2.7 - 3.8) MV EXCURSION: 14.703 mm (> 18.000) MV EF SLOPE: 65 mm/s (70 - 150) EPSS: 0.3 cm MV E Vincent: 0.98 m/s MV DecT: 198 ms MV A Vincent: 1.14 m/s MV E/A Ratio: 0.86 AV maxP.83 mmHg AV meanP.04 mmHg RAP: 5.00 mmHg RVSP: 29.25 mmHg FINDINGS -------- Sinus rhythm. This was a technically adequate study. The left ventricular size is normal. There is borderline concentric left ventricular hypertrophy. Overall left ventricular systolic function is normal with, an EF between 55 - 60 %. The diastolic filling pattern is normal for the age of the patient 13.73. The right ventricle is mildly enlarged. LA is midly dilated 29-33ml/m2. The right atrial size is normal. Interatrial septal aneurysm. Trace amount of aortic regurgitation. There is mild aortic stenosis present. Peak/mean gradient across the Aortic Valve is 21.83mmHg / 11.04mmHg. Mild mitral regurgitation is present. Mild tricuspid regurgitation present. There is no evidence of pulmonary hypertension. The right v entricular systolic pressure, as measured by Doppler, is 29.25mmHg. There is no pulmonic regurgitation present. The aortic root size is normal. Normal inferior vena cava with normal inspiratory collapse consistent with estimated right atrial pre ssure of 5 mmHg. There is no pericardial effusion. CONCLUSIONS -------- 1. The left ventricular size is normal. 2. There is borderline concentric left ventricular hypertrophy. 3. Overall left ventricular systolic function is normal with, an EF between 55 - 60 %. 4. The diastolic filling pattern is normal for the age of the patient 13.73 5. The right ventricle is mildly enlarged. 6. LA is midly dilated 29-33ml/m2. 7. Interatrial septal aneurysm. 8. Trace amount of aortic regurgitation. 9. There is mild aortic stenosis present. 10. Peak/mean gradient across the Aortic Valve is 21.83mmHg / 11.04mmHg. 11. Mild mitral regurgitation is present. 12. Mild tricuspid regurgitation present. SALES TECHNICIAN HOME THEATER: Laxmi Coello RDCS
== END | disposition home or self-care (01) ==
LOC: RADECHMAIN 13:22
PROVIDERS: ATTEND Internal Medicine
DX: I08.3 Combined rheumatic disorders of mitral, aortic and tricuspid valves (principal)
CPT/HCPCS: 93306

== ENCOUNTER → 2021-09-12 | Outpatient (CLI) | payer MEDICARE, BC ==
[2021-09-13 13:16] LABS: Coronavirus SARS CoV-2 Detected (Not Detected)
== END | disposition home or self-care (01) ==
LOC: LABWHC1 12:37
PROVIDERS: ATTEND Internal Medicine
DX: R05.9 Cough, unspecified (principal)
CPT/HCPCS: U0003; C9803

== ENCOUNTER → 2021-11-01 | Outpatient (CLI) | payer MEDICARE, BC ==
--- NOTE | 2021-11-01 10:11 | USB ---
Reason for exam: clinical finding. History: Mastectomy of the left breast, 2011. Physical Findings: A clinical breast exam by your physician is recommended on an annual basis and results should be correlated with mammographic findings. US Breast LT Left complete breast ultrasound includes all four quadrants, the retroareolar region and axilla. Finding demonstrates no cystic or solid lesion seen. ASSESSMENT: Negative, BI-RAD 1 RECOMMENDATION: Clinical management of the left breast. Manage on a clinical basis with regard to any suspicious palpable area. If anything enlarging patient can be rescanned.
== END | disposition home or self-care (01) ==
LOC: RADUSWWP 09:28
PROVIDERS: ATTEND Internal Medicine Hematology & Oncology
DX: N63.20 Unspecified lump in the left breast, unspecified quadrant (principal); Z85.3 Personal history of malignant neoplasm of breast; R92.8 Other abnormal and inconclusive findings on diagnostic imaging of breast; Z90.12 Acquired absence of left breast and nipple

== ENCOUNTER → 2023-11-13 | Outpatient (CLI) | payer MEDICARE, BC ==
--- NOTE | 2023-11-13 11:24 | CT ---
EXAMINATION TYPE: CT brain wo con DATE OF EXAM: 11/13/2023 COMPARISON: None HISTORY: ANESTHESIA OF SKIN CT DLP: 945.5 mGycm Automated exposure control for dose reduction was used. FINDINGS: The ventricles, basal cisterns and sulci over convexities are within normal limits for the patient's age and there is no mass effect or shift of midline structures. There is minimal bilateral basal ganglial calcification. There is no acute intra or extra-axial hemorrhage. There is a 12 mm round extra-axial mass in the right middle temporal fossa with homogeneous contrast enhancement. This most likely represents a meningioma. The posterior fossa is unremarkable. The intraorbital contents appear normal symmetric. Visualized paranasal sinuses and mastoid air cells are well aerated IMPRESSION: 1. No acute bleed or mass effect. 2. 12 mm enhancing right middle temporal fossa extra-axial mass which most likely represents a mening ioma.
--- NOTE | 2023-11-13 11:26 | CT ---
EXAMINATION TYPE: CT soft tissue neck wo con DATE OF EXAM: 11/13/2023 HISTORY: ANESTHESIA OF SKIN COMPARISON: None CT DLP: 327.8 mGycm. Automated Exposure Control for Dose Reduction was Utilized. TECHNIQUE: Multiple axial images are obtained from the skull base to thoracic inlet without IV contra st. FINDINGS: There are no supraclavicular lymph nodes. There is no thyroid mass or gross enlargement. The larynx including the cricoid, arytenoid and thyroid cartilages as well as the vocal cords are nor mal and symmetric. The tongue base, epiglottis, aryepiglottic folds, piriform sinuses and vallecula are normal and symme tric. The parotid and submandibular glands are normal and symmetric without focal mass or gross enlargement . There is no pharyngeal or parapharyngeal soft tissue mass or enhancement The great vessels of the neck are normal. There is no lymphadenopathy. There is no soft tissue swelling, inflammation or abscess. IMPRESSION: No significant abnormality seen.
== END | disposition home or self-care (01) ==
LOC: RADCTMAIN 10:49
PROVIDERS: ATTEND Internal Medicine
DX: R20.0 Anesthesia of skin (principal)
CPT/HCPCS: 70450; 70490

== ENCOUNTER → 2023-11-25 | Outpatient (CLI) | payer MEDICARE, BC ==
--- NOTE | 2023-11-25 15:09 | MR ---
EXAMINATION TYPE: MR brain wo/w con DATE OF EXAM: 11/25/2023 COMPARISON: CT 11/13/2023 HISTORY: 83-year-old female D32.9 BENIGN NEOPLASM OF MENINGES, UNSPECIFIED, Abnormal CT TECHNIQUE: Multiplanar, multisequence images of the brain and brainstem were acquired before and aft er administration of 8.5 mL IV Gadavist. Diffusion weighted imaging is performed. FINDINGS: No evidence for acute infarction, hemorrhage, mass effect, midline shift, herniation, effacement of b louisa cisterns, or extra-axial fluid collection. There is an extra-axial mass along the anterior right middle cranial fossa that shows intermediate T2 weighted signal intensity and avid postcontrast enhancement measuring 1.2 x 1.1 cm. On sagittal sequ ence, a dural tail is noted. No other intracranial mass is identified. There is mild generalized volume loss overlying the bilateral cerebral convexities. No hydrocephalus. Major intracranial flow voids are intact. T2/FLAIR weighted sequences show moderate patchy and scattered bright signal change throughout the [place] bcortical, deep, and periventricular regions of both cerebral hemispheres. Midline structures demonstrate normal morphology. The craniocervical junction is normal. Post contrast images demonstrate no evidence of other pathologic enhancement. Dural venous sinuses a re patent. There is moderate mucosal thickening ethmoid air cells. Globes are intact. IMPRESSION: 1. Confirmation of a 1.2 x 1.1 cm meningioma within the anterior right middle cranial fossa. No mass effect or acute intracranial abnormality seen. 2. Mild cerebral atrophy and moderate burden of chronic small vessel ischemic disease. 3. Moderate chronic ethmoid sinus disease.
== END | disposition home or self-care (01) ==
LOC: RADMRIMAIN 09:26
PROVIDERS: ATTEND Family Medicine
DX: D32.0 Benign neoplasm of cerebral meninges (principal); I67.82 Cerebral ischemia; J32.2 Chronic ethmoidal sinusitis; G31.9 Degenerative disease of nervous system, unspecified
CPT/HCPCS: 70553; A9585

== ENCOUNTER → 2024-01-23 | Outpatient (CLI) | payer MEDICARE, BC | END | disposition home or self-care (01) | LOC: LABWHC1 15:49 | PROVIDERS: ATTEND Psychiatry & Neurology Neurology | DX: R41.3 Other amnesia (principal) | CPT/HCPCS: 36415; 82607; 82747; 84207; 84443 ==

== ENCOUNTER → 2024-11-30 | Outpatient (CLI) | payer MEDICARE, BC | END | disposition home or self-care (01) | LOC: LABWHC1 10:56 | PROVIDERS: ATTEND Family Medicine | DX: E83.52 Hypercalcemia (principal) | CPT/HCPCS: 36415; 82330; 83970 ==

== ENCOUNTER 2024-12-20 08:26 | Emergency (ER) | payer MEDICARE, BC ==
[2024-12-20 08:34] VITALS: RESP 18
--- NOTE | 2024-12-20 08:44 | ED ---
General Adult HPI - General Chief complaint: Arrhythmia/Palpitations Stated complaint: chest pain Time Seen by Provider: 12/20/24 08:29 Source: patient Mode of arrival: ambulatory Limitations: no limitations - History of Present Illness Initial comments: Dictation was produced using [employer] dictation software. please excuse any grammatical, word or spelling errors. Chief Complaint: 84-year-old female presents to the emergency department palpitations History of Present Illness: Patient is 84-year-old female presents to the emergency department palpitations. Patient has a history of A-fib takes A-fib medications including rate controlling medications along with anticoagulation medications. Patient states that she has been worked up with cardiology and wore a monitor for palpitation according to daughter who is at the bedside patient has had no abnormal findings on her monitor during the reported times of her palpitations. States that last night she had 2 separate episodes of palpitations where it felt like her heart was pounding. Patient has any symptoms currently at the bedside. No associated chest pain or shortness of breath. The ROS documented in this emergency department record has been reviewed and confirmed by me. Those systems with pertinent positive or negative responses have been documented in the HPI. All other systems are other negative and/or noncontributory. - Related Data Home Medications Medication Instructions Recorded Confirmed Omeprazole 20 mg PO DAILY 10/30/15 10/03/22 Meclizine [Antivert] 25 mg PO TID PRN 07/21/21 10/03/22 Acetaminophen [Tylenol Extra 500 mg PO DAILY 10/03/22 10/03/22 Strength] Apixaban [Eliquis] 5 mg PO BID 10/03/22 10/03/22 Atorvastatin [Lipitor] 40 mg PO DAILY 10/03/22 10/03/22 Metoprolol Tartrate [Lopressor] 12.5 mg PO DAILY 10/03/22 10/03/22 Vitamin A 2,400 mcg PO DAILY 10/03/22 10/03/22 Previous Rx's Medication Instructions Recorded Isosorbide Mononitrate ER [Imdur] 30 mg PO DAILY #90 tab 07/23/21 Valsartan [Diovan] 320 mg PO DAILY 30 Days #60 tab 07/23/21 Amiodarone [Cordarone] See Rx Instructions .ROUTE 10/04/22 .COMPLEX tab Allergies Allergy/AdvReac Type Severity Reaction Status Date / Time adhesive Allergy Rash/Hives Verified 12/20/24 08:34 codeine Allergy Nausea Verified 12/20/24 08:34 enalapril maleate Allergy Cough Verified 12/20/24 08:34 [From Vasotec] enalaprilat dihydrate Allergy Cough Verified 12/20/24 08:34 [From Vasotec] Sulfa (Sulfonamide Allergy Rash/Hives Verified 12/20/24 08:34 Antibiotics) Review of Systems ROS Statement: Those systems with pertinent positive or pertinent negative responses have been documented in the HPI. ROS Other: All systems not noted in ROS Statement are negative. Past Medical History Past Medical History: Cancer, GERD/Reflux, Hyperlipidemia, Hypertension Additional Past Medical History / Comment(s): VERTIGO. BRADYCARDIA. BREAST CANCER left masectomy, aortic stenosis. History of Any Multi-Drug Resistant Organisms: None Reported Past Surgical History: Adenoidectomy, Appendectomy, Hysterectomy, Joint Replacement, Tonsillectomy Additional Past Surgical History / Comment(s): LEFT MASTECTOMY. B KNEE REPLACED Past Anesthesia/Blood Transfusion Reactions: Motion Sickness Additional Past Anesthesia/Blood Transfusion Reaction / Comment(s): HX OF VERTIGO Past Psychological History: No Psychological Hx Reported Smoking Status: Never smoker Past Alcohol Use History: None Reported Past Drug Use History: None Reported - Past Family History Father Family Medical History: COPD General Exam - General Exam Comments Initial Comments: PHYSICAL EXAM: General Impression: Alert and oriented x3, not in acute distress HEENT: Normocephalic atraumatic, extra-ocular movements intact, pupils equal and reactive to light bilaterally, mucous membranes moist. Cardiovascular: Heart regular rate and rhythm Chest: Able to complete full sentences, no retractions, no tachypnea Abdomen: abdomen soft, non-tender, non-distended, no organomegaly Musculoskeletal: Pulses present and equal in all extremities, no peripheral edema Motor: no focal deficits noted Neurological: CN II-XII grossly intact, no focal motor or sensory deficits noted Skin: Intact with no visualized rashes Psych: Normal affect and mood Limitations: no limitations Course Vital Signs 12/20/24 12/20/24 08:31 09:29 Temperature 98.3 F Pulse Rate 56 L 54 L Respiratory 18 18 Rate Blood Pressure 161/90 121/59 O2 Sat by Pulse 98 98 Oximetry EKG Findings - EKG Comments: EKG Findings:: My EKG interpretation: Ventricular rate 67, sinus rhythm, UT 197, QRS 91, QTc 420. No UT prolongation, no QTC prolongation, no ST or T-wave changes noted. Overall, this EKG is unremarkable Medical Decision Making - Medical Decision Making Was pt. sent in by a medical professional or institution (, PA, VOCATIONAL NURSE, urgent care, hospital, or long term...) When possible be specific @ -No Did you speak to anyone other than the patient for history (EMS, parent, family, police, friend...)? What history was obtained from this source @ -No Did you review nursing and triage notes (agree or disagree)? Why? @ -I reviewed and agree with nursing and triage notes Were old charts reviewed (outside hosp., previous admission, EMS record, old EKG, old radiological studies, urgent care reports/EKG's, long term records)? Report findings @ -No old charts were reviewed Differential Diagnosis (chest pain, altered mental status, abdominal pain women, abdominal pain men, vaginal bleeding, musculoskeletal, weakness, fever, dyspnea, syncope, headache, dizziness, GI bleed, back pain, seizure, CVA, palpatations, mental health)? @ - Differential Palpitations: Ventricular arrhythmias, atrial arrhythmias, myocardial infarction, anemia, thyrotoxicosis, electrolyte imbalance, hypokalemia, pulmonary embolism, pulmonary disease, drugs, alcohol, anxiety, stress.... This is not meant to be an all-inclusive list. EKG interpreted by me (3pts min.). @ -See above X-rays interpreted by me (1pt min.). @ -Chest x-ray is nonacute CT interpreted by me (1pt min.). @ -None done U/S interpreted by me (1pt. min.). @ -None done What testing was considered but not performed or refused? (CT, X-rays, U/S, lab s)? Why? @ -None What meds were considered but not given or refused? Why? @ -None Was smoking cessation discussed for >3mins.? @ -No Were there social determinants of health that impacted care today? How? (Homelessness, low income, unemployed, alcoholism, drug addiction, transportation, low edu. Level, literacy, decrease access to med. care, fpc, rehab)? @ -No Was there de-escalation of care discussed even if they declined (Discuss DNR or withdrawal of care, Hospice)? DNR status @ -No What co-morbidities impacted this encounter? (DM, HTN, Smoking, COPD, CAD, Cancer, CVA, ARF, Chemo, Hep., AIDS, mental health diagnosis, sleep apnea, morbid obesity)? @ -afib Was patient admitted / discharged? Hospital course, mention meds given and route, prescriptions, significant lab abnormalities, going to OR and other pertinent info. @ -84-year-old female with's. She has history of A-fib was on A-fib medications. Vital signs stable. EKG is benign. Labs unremarkable. 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 Patient will be discharged advised follow-up with cardiology Did you discuss the management of the patient with other professionals (professionals i.e. , PA, VOCATIONAL NURSE, lab, RT, psych nurse, social service liaison, logistics intern, teacher, medical scientific officer, caseworker)? Give summary @ -No Was critical care preformed (if so, how long)? @ -No Undiagnosed new problem with uncertain prognosis? @ -No Drug Therapy requiring intensive monitoring for toxicity (Heparin, Nitro, Insulin, Cardizem)? @ -No Were any procedures done? @ -No Diagnosis/symptom? Acute, or Chronic, or Acute on Chronic? Uncomplicated (without systemic symptoms) or Complicated (systemic symptoms)? @ -Palpitations Side effects of treatment? @ -No Exacerbation, Progression, or Severe Exacerbation? @ -No Poses a threat to life or bodily function? How? (Chest pain, [place], [place], pneumonia, PE, COPD, DKA, ARF, appy, cholecystitis, CVA, Diverticulitis, Homicidal, Jennifer cidal, threat to staff... and all critical care pts) @ -No - Lab Data Result diagrams: 12/20/24 09:29 12/20/24 09:29 Lab Results 12/20/24 12/20/24 12/20/24 Range/Units 09: 09: 09:29 WBC 5.38 (4.50-10.00) 10*3/uL RBC 4.02 L (4.10-5.20) 10*6/uL Hgb 14.2 (12.0-15.0) g/dL Hct 41.5 (37.2-46.3) % MCV 103.2 H (80.0-97.0) fL MCH 35.3 H (27.0-32.0) pg MCHC 34.2 (32.0-37.0) g/dL Plt Count 188 (140-440) 10*3/uL MPV 10.1 (9.5-12.2) fL Immature Gran % (Auto) 0.2 % Neutrophils % 73.7 % Lymphocytes % 17.3 % Monocytes % 7.1 % Eosinophils % 1.1 % Basophils % 0.6 % Immature Gran # 0.01 (0.00-0.04) 10*3/uL Neutrophils # 3.97 (1.80-7.70) 10*3/uL Lymphocytes # 0.93 (0.90-5.00) 10*3/uL Monocytes # 0.38 (0.20-1.00) 10*3/uL Eosinophils # 0.06 (0.04-0.35) 10*3/uL Basophils # 0.03 (0.00-0.10) 10*3/uL PT 12.1 (10.0-12.5) sec INR 1.1 (<1.2) APTT 23.8 (22.0-30.0) sec Sodium 139 (137-145) mmol/L Potassium 4.3 (3.5-5.1) mmol/L Chloride 107 (98-107) mmol/L Carbon Dioxide 25 (22-30) mmol/L Anion Gap 7 mmol/L BUN 15 (7-17) mg/dL Creatinine 0.90 (0.52-1.04) mg/dL Est GFR (CKD-EPI)AfAm 68 (>60 ml/min/1.73 sqM) Est GFR (CKD-EPI)NonAf 59 (>60 ml/min/1.73 sqM) Glucose 129 H (74-99) mg/dL Calcium 10.8 H (8.4-10.2) mg/dL Magnesium 1.7 (1.6-2.3) mg/dL Total Bilirubin 1.2 (0.2-1.3) mg/dL AST 34 (14-36) U/L ALT 31 (4-34) U/L Alkaline Phosphatase 74 (38-126) U/L Troponin I (0.000-0.034) ng/mL Total Protein 6.3 (6.3-8.2) g/dL Albumin 3.8 (3.5-5.0) g/dL 12/20/24 Range/Units 09:29 WBC (4.50-10.00) 10*3/uL RBC (4.10-5.20) 10*6/uL Hgb (12.0-15.0) g/dL Hct (37.2-46.3) % MCV (80.0-97.0) fL MCH (27.0-32.0) pg MCHC (32.0-37.0) g/dL Plt Count (140-440) 10*3/uL MPV (9.5-12.2) fL Immature Gran % (Auto) % Neutrophils % % Lymphocytes % % Monocytes % % Eosinophils % % Basophils % % Immature Gran # (0.00-0.04) 10*3/uL Neutrophils # (1.80-7.70) 10*3/uL Lymphocytes # (0.90-5.00) 10*3/uL Monocytes # (0.20-1.00) 10*3/uL Eosinophils # (0.04-0.35) 10*3/uL Basophils # (0.00-0.10) 10*3/uL PT (10.0-12.5) sec INR (<1.2) APTT (22.0-30.0) sec Sodium (137-145) mmol/L Potassium (3.5-5.1) mmol/L Chloride (98-107) mmol/L Carbon Dioxide (22-30) mmol/L Anion Gap mmol/L BUN (7-17) mg/dL Creatinine (0.52-1.04) mg/dL Est GFR (CKD-EPI)AfAm (>60 ml/min/1.73 sqM) Est GFR (CKD-EPI)NonAf (>60 ml/min/1.73 sqM) Glucose (74-99) mg/dL Calcium (8.4-10.2) mg/dL Magnesium (1.6-2.3) mg/dL Total Bilirubin (0.2-1.3) mg/dL AST (14-36) U/L ALT (4-34) U/L Alkaline Phosphatase (38-126) U/L Troponin I <0.012 (0.000-0.034) ng/mL Total Protein (6.3-8.2) g/dL Albumin (3.5-5.0) g/dL Disposition Clinical Impression: Palpitations Disposition: HOME SELF-CARE Condition: Good Instructions (If sedation given, give patient instructions): Heart Palpitations (ED) Is patient prescribed a controlled substance at d/c from ED?: No Referrals: Nicola Garnett MD [Primary Care Provider] - 1-2 days Time of Disposition: 10:10
[2024-12-20 09:38] LABS: Basophils # (A) 0.03 10*3/uL (0.00-0.10); Basophils % (A) 0.6 %; Eosinophils # (A) 0.06 10*3/uL (0.04-0.35); Eosinophils % (A) 1.1 %; HCT 41.5 % (37.2-46.3); HGB 14.2 g/dL (12.0-15.0); Lymphocytes # (A) 0.93 10*3/uL (0.90-5.00); Lymphocytes % (A) 17.3 %; MCH 35.3 pg (27.0-32.0); MCHC 34.2 g/dL (32.0-37.0); MCV 103.2 fL (80.0-97.0); Mean Platelet Volume 10.1 fL (9.5-12.2); Monocytes # (A) 0.38 10*3/uL (0.20-1.00); Monocytes % (A) 7.1 %; Neutrophils # (A) 3.97 10*3/uL (1.80-7.70); Neutrophils % (A) 73.7 %; Platelet Count 188 10*3/uL (140-440); RBC 4.02 10*6/uL (4.10-5.20); RDW 12.6 % (11.5-14.5); WBC 5.38 10*3/uL (4.50-10.00)
[2024-12-20 09:47] LABS: INR 1.1 (<1.2); Partial Thromboplastin Time 23.8 sec (22.0-30.0); Prothrombin Time 12.1 sec (10.0-12.5)
--- NOTE | 2024-12-20 09:48 | XR ---
EXAMINATION TYPE: XR chest 2V DATE OF EXAM: 12/20/2024 9:38 AM COMPARISON: 10/03/2022 CLINICAL INDICATION: Female, 84 years old with history of dysrhythmia, , TECHNIQUE: PA and lateral views FINDINGS: Heart normal size. Mild hyperinflation. Mild central peribronchial cuffing is unchanged. No consolida tion or pleural effusion. [facility] mid and lower thoracic spine. IMPRESSION: COPD. No acute process seen. [facility], Workstation: [facility], 12/20/2024 9:46 AM
[2024-12-20 09:50] LABS: ALT 31 U/L (4-34); AST 34 U/L (14-36); African American GFR (CKD) 68 (>60 ml/min/1.73 sqM); Albumin 3.8 g/dL (3.5-5.0); Alkaline Phosphatase 74 U/L (38-126); Anion Gap 7 mmol/L; Blood Urea Nitrogen 15 mg/dL (7-17); Calcium 10.8 mg/dL (8.4-10.2); Carbon Dioxide 25 mmol/L (22-30); Chloride 107 mmol/L (98-107); Glucose 129 mg/dL (74-99); Magnesium 1.7 mg/dL (1.6-2.3); Non-African American GFR(CKD) 59 (>60 ml/min/1.73 sqM); Potassium 4.3 mmol/L (3.5-5.1); Sodium 139 mmol/L (137-145); Total Bilirubin 1.2 mg/dL (0.2-1.3); Total Protein 6.3 g/dL (6.3-8.2)
[2024-12-20 10:22] VITALS: BP 113/61; PULSE 60; TEMP 97.6
== END 2024-12-20 10:27 | disposition home or self-care (01) ==
LOC: SUPCPDRO 08:26 → EC 08:26
DX: R00.2 Palpitations (principal); I48.91 Unspecified atrial fibrillation; Z88.1 Allergy status to other antibiotic agents; Z88.2 Allergy status to sulfonamides; Z88.5 Allergy status to narcotic agent; Z91.09 Other allergy status, other than to drugs and biological substances; Z88.8 Allergy status to other drugs, medicaments and biological substances
CPT/HCPCS: 36415; 71046; 80053; 83735; 84484; 85025; 85610; 85730; 93005; 99285

== ENCOUNTER → 2025-02-11 | Outpatient (CLI) | payer MEDICARE, BC ==
--- NOTE | 2025-02-11 14:47 | MR ---
EXAMINATION TYPE: MR brain wo/w con DATE OF EXAM: 02/11/2025 COMPARISON: Prior MRI November 25, 2023 HISTORY: F/u meningioma. Hx breast cancer. TECHNIQUE: Multiplanar, multisequence images of the brain and brainstem is performed without and with IV contras t, utilizing 8.5 mL intravenous Gadobutrol . FINDINGS: Diffusion weighted images demonstrate no evidence of a recent infarct or other diffusion ab normality. There is no extra-axial fluid collection. The ventricular system and cisternal spaces ar e normal in size and appearance. The brain volume is age appropriate. There are multifocal and confl uent areas of T2 hyperintensity seen throughout the white matter bilaterally. Lesions are nonspecific in appearance and distribution. Midline structures demonstrate normal morphology. The craniocervical junction appears within normal limits. Persistent 1.1 cm homogeneous enhancing mass in the anterior medial aspect of the right middl e cranial fossa axial image 12 consistent with known meningioma. No new enhancing masses are seen. Th e dural venous sinuses appear patent. Bilateral aphakia redemonstrated. Mild mucosal thickening bilat eral ethmoid sinuses redemonstrated. The paranasal sinuses are clear. IMPRESSION: 1. Stable 1.1 cm right anterior medial middle cranial fossa meningioma. No new enhancing masses ident ified. 2. Moderate chronic small vessel ischemic changes are redemonstrated and stable. [facility], , 02/11/2025 2:45 PM
== END | disposition home or self-care (01) ==
LOC: RADMRIMAIN 13:15
PROVIDERS: ATTEND Psychiatry & Neurology Neurology
DX: D32.0 Benign neoplasm of cerebral meninges (principal); I67.82 Cerebral ischemia; Z85.3 Personal history of malignant neoplasm of breast
CPT/HCPCS: 70553; A9585